=== PATIENT | male | born 2000 | race Caucasian/White ===

== ENCOUNTER 2024-05-28 02:27 | Emergency (ER) | payer SELFPAY ==
[2024-05-28 02:30] VITALS: BP 116/74; PULSE 61; RESP 18; TEMP 36.3; O2SAT 98; BMI 25.9
[2024-05-28 02:48] LABS: MANUAL DIFF FLAG NO
[2024-05-28 02:49] LABS: Basophils Absolute Auto 0.1 X10*3/uL (0.0-0.2); Basophils Percent Auto 0.8 % (0-2); Eosinophils Absolute Auto 0.1 X10*3/uL (0.0-0.4); Hematocrit 45.4 % (42.0-52.0); Hemoglobin 14.9 g/dl (14.0-18.0); Imm Gran Abs Auto 0.03 X10*3/uL (0.00-0.03); Imm Gran Pct Auto 0.4 % (0.0-0.4); Lymphocytes Absolute Auto 1.2 X10*3/uL (1.2-4.9); Lymphocytes Percent Auto 15.8 % (20-40); Mean Corpuscular HGB Conc 32.8 g/dl (31.0-36.0); Mean Corpuscular Hemoglobin 29.8 pg (27.0-33.0); Mean Corpuscular Volume 90.8 fL (80.0-98.0); Mean Platelet Volume 8.8 fL (9.4-12.4); Monocytes Absolute Auto 0.4 X10*3/uL (0.1-1.2); Monocytes Percent Auto 4.8 % (2-11); Neutrophils Absolute Auto 6.1 x10*3/uL (2.0-8.3); Neutrophils Percent Auto 77.2 % (45-73); Platelet Count 255 X10*3/uL (160-400); Red Cell Distribution Width 13.4 % (11.0-16.0); White Blood Count 7.9 X10*3/uL (4.8-10.8)
--- OUTSIDE RECORDS SUMMARY | 2024-05-28 03:19 | XMS_ITS | Clinical Summary ---
Author Organization [facility] Address [address] [place] [address] Phone Care Team Providers Care Brigadier Name Role Phone Carloyn Meyer MD Primary Care Provider [phone] Allergies Active Allergy Reactions Criticality Noted Date Comments Amoxicillin Rash Low Mom reports rash while taking amox as Penicillins 04/19/2003 Medications valACYclovir (Valtrex) 1 g tabletIndications: Herpes labialis 2 tabs twice a day for one day as needed for cold sores. 24 tablet 1 Active amphetamine-dextro amphetamine XR (Adderall XR) 20 MG 24 hr capsuleIndications :Attention deficit hyperactivity disorder (ADHD), predominantly inattentive type Take 1 capsule (20 mg total) by mouth every morning. 30 capsule 3 Active amphetamine-dextro amphetamine XR (Adderall XR) 20 MG 24 hr capsuleIndications :Attention deficit hyperactivity disorder (ADHD), predominantly inattentive type Take 1 capsule (20 mg total) by mouth every morning. 30 capsule 3 Active amphetamine-dextro amphetamine 5 MG tabletIndications: Attention deficit hyperactivity disorder (ADHD), predominantly inattentive type Take 1 tablet (5 mg total) by mouth daily. 30 tablet 3 Active amphetamine-dextro amphetamine 5 MG tabletIndications: Attention deficit hyperactivity disorder (ADHD), predominantly inattentive type Take 1 tablet (5 mg total) by mouth daily. 30 tablet 3 Active amphetamine-dextro amphetamine XR (Adderall XR) 20 MG 24 hr capsuleIndications :Attention deficit hyperactivity disorder (ADHD), predominantly inattentive type Take 1 capsule (20 mg total) by mouth every morning. 30 capsule 3 Active amphetamine-dextro amphetamine 5 MG tabletIndications: Attention deficit hyperactivity disorder (ADHD), predominantly inattentive type Take 1 tablet (5 mg total) by mouth daily. 30 tablet 3 Active Active Problems Problem Noted Date Diagnosed Date Painful erection 10/03/2022 Assessment & Plan (10/03/2022 3:16 PM EDT): 22 year old male with pain with full retraction of foreskin during intercourse and reducible paraphimosis on exam. Referred to urology for evaluation. ?need for circ Sebaceous cyst of penis 12/05/2017 Assessment & Plan (12/05/2017 8:49 PM EDT): Recommend warm soaks and hope will open and drain itself, if becomes red to come for eval and further tx. Attention deficit hyperactiv ity disorder (ADHD), predominantly inattentive type 06/27/2016 Assessment & Plan (10/03/2022 3:09 PM EDT): Hyperfocused on adderral XR 25 mg. Does better with smaller dose. Will decrease to 20 mg. Can use short acting 5 mg PRN. Follow up in 3 months Assessment & Plan (09/27/2021 2:11 PM EDT): Doing ok on present med. Recommend continue on adderall XR 25mg for start of school, if finds grades slipping due to difficulty focusing to call and will send higher dose. Discussed if on higher dose should not come on and off medication as can cause mood issues. Ok to use short acting 10mg dose in later afternoon or evening as needed for studying. Refill given for both medications. Recheck when home for vacation in 3-4 months, call if problems or concerns. Assessment & Plan (01/08/2021 1:25 PM EST): Will decrease long acting adderall xr to 25mg, now that through puberty likely metabolism slower and does not need as much. He can increase adderall short acting to 10mg to take for evening class or studying as needed. Will recheck in a month when back for winter break and see if now correct dosing or needs further adjustment. call if problems or concerns. Assessment & Plan (05/12/2020 2:53 PM EDT): Doing well on adderall XR 30mg in AM and adderall 5-10mg short acting in evening as needed for homework/projects. Will recheck in 4 months prior to going to college, as needed sooner. call if problems or concerns. Assessment & Plan (04/06/2020 8:51 PM EST): Will continue adderall XR 30mg in AM as working well for school day. Will give trial of adderall 5mg to take early evening with dinner and see if helps with homework without causing sleep issues. REcheck in 1 month, as needed sooner. Assessment & Plan (12/16/2019 10:00 PM EST): Doing well on present med, will continue same, call if problems or concerns. Recheck in 3 months, as needed sooner. Discussed can give trial of melatonin 5-10 mg hs for sleep. Assessment & Plan (08/25/2019 10:23 PM EDT): Doing well on present med, will continue same, call if problems or concerns. Recheck in 3 months, as needed sooner. Assessment & Plan (04/18/2019 10:13 AM EST): Doing well on present med, will continue same, call if problems or concerns. Discussed if plans to come off for summer does not need recheck until restart in September, if plans to stay on for summer needs recheck in 3 months. call if problems or concerns. Assessment & Plan (12/16/2018 4:33 PM EST): Doing well on increase adderall XR 30mg, continue same, recheck in 3 months, as needed sooner. Assessment & Plan (11/23/2018 12:46 PM EDT): Discussed on low dose for size, will increase to adderall XR 30mg and hope will capture symptoms better. Discussed once on dose covering for school day can discuss possibly adding short acting after school for homework if needed. Recheck in 2 weeks, as needed sooner, call if problems or concerns. Assessment & Plan (10/28/2018 5:52 PM EDT): Discussed if holding 8AM to 8PM this is about as long as going to get and would not give short acting dose at 8PM as will have trouble falling asleep. Encouraged to do homework during study halls in school and as soon as possible when comes home prior to med wearing off. Discussed if starts wearing off in afternoon then could give short acting dose or if stops holding during school can increase morning dose. Recheck in 3 months, as needed sooner if any above issues arise or other concerns. Assessment & Plan (09/24/2018 1:07 PM EDT): He has tried concerta, adderall and straterra and feels adderall was best. Discussed will start on low dose and then work up as needed until find dose that seems to work and no side effects. Discussed if adderall also causes problems could try vyvanse which he has not had yet. Reviewed side effects and need to take after breakfast. Recheck 2-4 weeks after restarts adderall, as needed sooner. Assessment & Plan (03/19/2018 9:12 AM EST): Doing well on present med, will continue same, call if problems or concerns. Recheck in 3 months, as needed sooner. Assessment & Plan (12/05/2017 8:48 PM EDT): Discussed that straterra does not work for everyone and if not helping focus recommend return to adderall and adjust dose until working well again. As grades good now mom wants to stay on straterra but will call to reevaluate if he feels needs more help with focus or grades slipping. Discussed straterra also can cause depressed mood and if starts worsening would recommend coming off. Recheck in 3 months, as needed sooner. Assessment & Plan (07/30/2017 12:36 PM EDT): Discussed with mother and patient straterra works well for some people but others do not respond. Also discussed can cause depression and worsening mood and to call if occurs. Discussed can not go on and off as does with adderall, if uses straterra must take daily, should see some effect in 2-3 weeks but will not be max effect for 6 weeks. Start at 40mg for 1 week and if does well increase to 80mg. call if problems or concerns. Recheck in 6 weeks, as needed sooner. Assessment & Plan (03/15/2017 12:14 PM EST): Doing well on present med, will continue same, call if problems or concerns. Recheck in 3 months, as needed sooner. Assessment & Plan (11/14/2016 4:08 PM EDT): Doing well on present med, will continue same, call if problems or concerns. Recheck in 4 months, as needed sooner. Assessment & Plan (06/27/2016 10:00 PM EDT): Discussed with mom that as school over in just 2 weeks and coming off med for summer would remain on adderall XR 25mg for now and restart this in fall. If in fall after a month continues to have difficulty concentrating for tests and needing lots of extra time should call and will discuss increasing. Body mass index (BMI) of 85t h to less than 95th percentile for age in pediatric patient 07/27/2008 Assessment & Plan (12/16/2019 10:01 PM EST): Given counseling on proper nutrition and importance of regular exercise. Herpes simplex 05/15/2006 Overview (06/25/2016): When younger has recurrent bouts of eczema herpeticum, has not had for years. Resolved Problems Problem Noted Date Diagnosed Date Resolved Date Right hip pain 07/07/2020 10/03/2022 Assessment & Plan (01/08/2021 1:26 PM EST): Exam remains normal with FROM, x-ray previously normal. Referral to PT given, discussed likely will need to do when home on break because insurance unlikely to cover out of state but he can call and find out. Assessment & Plan (07/07/2020 1:42 PM EDT): By history sounds like had avulsion fracture of hip in 9th grade and never had PT after to have ROM return fully. Left hip pain likely from over use and expect will get better with rest. Will schedule hip x-ray at [facility] and if normal will send to PT. Dysthymia 12/05/2017 01/08/2021 Assessment & Plan (12/05/2017 8:46 PM EDT): Discussed with mom and patient counseling for feelings of depression and recommended having evaluation with our counselors to see if would benefit from counseling to help mood. Mom and patient interested, will send referral to behavioral health. Dysphoric mood 12/04/2016 01/08/2021 Assessment & Plan (12/16/2019 4:51 PM EST): He reports is just stress of school and nothing he is concerned about. He reports not interfering with activities and grades are good. Discussed that if worsens or interfering with activities to call for counseling. Assessment & Plan (12/05/2016 1:13 PM EDT): Pt denies feeling depressed but spending more time alone. Discussed with mother that this is age appropriate behavior. Discussed with pt signs of depression He agrees to seek med attn if worsening mood. Advised pt to discuss with PCP at next med check. Attention deficit disorder 02/20/2015 0 06/27/2016 Overview (06/25/2016): On adderall XR 25mg in AM Assessment & Plan (06/27/2016 9:57 PM EDT): Encounters Date Type Department Care Team Description 05/28/2024 2:27 AM EDT - Present Hospital Encounter [facility] - Patient Ping from Last 3 Months Immunizations Immunization Administration Dates Next Due DTaP 06/19/2006, 4,2002,10/09,2002 H1N1 01/25/2009,12/29/2008 HPV Vaccine 9 Valent 11/01/2015,10/29/2014 Hep A 10/21/2012,10/17/2011 Hep B 03/02/2003,2002,2002 Hib, unspecified formulation 09/15/2003, 2002,2002,07/21 IPV 06/19/2006, 4,2002,07/21 Influenza 11/01/2015,10/29/2014,01/30/2006 Influenza, injectable, quadr ivalent, preservative free 12/18/2021,12/01/2020,12/16/2019,12/16,12/05/2017,12/04/2016 Influenza, intranasal, trivalent 014,10/21/2012,10/17/2011,11/30 MMR 06/19/2006,06/03/2003 Meningococcal B Bexsero 01/15/2019,12/16/2018 Meningococcal Conj (Menactra) MCV4P 12/16/2018,0 10/27/2013 Pneumococcal Conjugate 09/15/2003,2002,2002,07/21 Tdap 10/27/2013 Varicella 06/19/2006,06/03/2003 Family History Medical History Relation Name Comments ADD / ADHD Brother No Known Problems Father Hepatitis Mother C ADD / ADHD Sister Relation Name Status Comments Brother Father Mother Other 1 Brother with AD HD and meds when younger. Mother Hep C + (he was checked at 9 months and neg) Other 2 Brother with AD HD and meds when younger. sister on adderall as adult Mother Hep C + (he was checked at 9 months and neg) Sister Social History Tobacco Use Types Packs/Day Years Used Date Smoking Tobacco: Never Assessed Comments:vaped short time in summer Alcohol Use Standard Drinks/Week Comments Yes 2 (1 standard drink = 0.6 oz pur e alcohol) Hunger/Food Answer Date Recorded In the last 12 months, did y ou or your family ever eat less than you felt you should because there wasn't enough money for food? No 01/04/2021 Stable Housing Answer Date Recorded Are you worried that in the next 2 months you may not have stable housing? No 01/04/2021 Transportation Concerns Answer Date Rec orded In the last 12 months, have you or your family ever had to go without healthcare because you didn't have a way to get there? No 01/04/2021 Hazards in Home Answer Date Recorded Think about the place you li ve. Do you have problems with any of the following? Pests (mice or roaches), mold, no/not working smoke detectors, water leaks, no window guards. No 2020 Financing Utilities Answer Date Recorde d In the last 12 months, has t he electric, gas, oil, or water company threatened to shut off your services in your home? No 01/04/2021 Safety at Home Answer Date Recorded Are you or your family worried about feeling saf e in your home? No 01/04/2021 Outside Support Answer Date Recorded Do you feel that you need mo re support from other people or programs to help you care for yourself or your family? No 01/04/2021 Understanding Health Concerns Answer Da te Recorded Do you need help understandi ng your or your child's healthcare needs (diagnosis, medications, plan, etc.)? No 01/04/2021 Financing Health Concerns Answer Date R ecorded In the last 12 months, was t here a time when your child needed to see a doctor or get medications or supplies but could not because of cost? No 01/04/2021 Missing School or Work Answer Date Ciro rded Did you or your child miss s chool or work because of a health problem that could have been avoided? No 01/04/2021 Sex and Gender Information Value Date Recorded Sex Assigned at Male 01/04/2021 2:09 PM EST Legal Sex Male 5:30 AM EST Gender Identity Male 01/04/2021 2:09 PM EST Sexual Orientation Straight 12/16/2018 4: 30 PM EST Last Filed Vital Signs Vital Sign Reading Time Taken Comments Blood Pressure 116/70 10/03/2022 1:25 PM EDT Pulse 65 10/07/2012 9:49 AM EDT Temperature - - Respiratory Rate - - Oxygen Saturation - - Inhaled Oxygen Concentration - - Weight 88.1 kg (194 lb 4 oz) 10/03/2022 1:25 PM EDT Height 184.5 cm (6' 0.64 ) 10/03/2022 1:25 PM ED T Body Mass Index 25.88 10/03/2022 1:25 PM EDT Plan of Treatment Health Maintenance Due Date Last Done Comments Influenza Vaccines (#1) 2023 12/19/19, 12/01/2020, 12/16/2019, Additional history exists COVID-19 Vaccine (4 - 2023-2 5 season) 2023 04/29/2021, 08/15/2020, 07/19/2020 DTaP,Tdap,and Td Vaccines (8 - Td or Tdap) 12/13/2033 12/14/2023, 10/27/2013, 06/19/2006, Additional history exists Hepatitis B Vaccines Completed 03/02/2003, 2002, 2002 HIB Vaccines Completed 09/15/2003, 11/12, 2002, Additional history exists Pneumococcal Vaccine Completed 09/15/2003, 2002, 2002, Additional history exists IPV Vaccines Completed 06/19/2006, 03/2003, 2002, Additional history exists MMR Vaccines Completed 06/19/2006, 06/03/2003 Varicella Vaccines Completed 06/19/2006, 06/03/2003 Hepatitis A Vaccines Completed 10/21/2012, 10/17/19 12 HPV Vaccines Completed 11/01/2015, 10/29/2014 Meningococcal Vaccine Completed 12/16/2018, 014 Men B Vaccine Completed 01/15/2019, 12/16/2018 HIV Screening Completed 01/04/2021 Hepatitis C Screening Completed 01/04/2021 Procedures * The patient is currently admitted. The information in this section might not be complete until the patient is discharged.Due to [place] Mix & Meet law, this organization might not be sharing sensitive test results. Procedure Name Priority Date/Time Associated Diagnosis Comments HEPATITIS C ANTIBODY WITH REFLEX TO HCV, RNA, QUANT, RT PCR Routine 01/04/2021 2:32 PM EST Encounter for screening examination for sexually transmitted disease from Last 3 Months or Most Recently Relevant to Health Maintenance Results * Due to [place] Mix & Meet law, this organization might not be sharing sensitive test results. * Hepatitis C antibody (01/04/2021 2:32 PM EST) Hepatitis C Virus Antibody NON-REACT CHRISTI NON-REACT CHRISTI [facility] Signal/Cutoff 0.02 <1.00 [facility] Comment: HCV antibody was non-reactive. There is no laboratory evidence of HCV infection. In most cases, no further action is required. However, if recent HCV exposure is suspected, a test for HCV RNA (test code 18734) is suggested. For additional information please refer to http://education.[employer]/faq/MVR12w6 (This link is being provided for informational/ educational purposes only.) Blood (Blood, Venous) 01/04/2021 2:32 PM EST 01/05/2021 11:30 PM EST Narrative Resulting Agency Comment Performing Organization Information: ?Site ID: [id number] ?Name: [facility] ?Address: [address] [place] [address], [facility] [place] [address] ?Director: Trace Blake us Carolyn Meyer MD LAB BLOOD ORDERABLES Final Resul t [id number] from Last 3 Months or Most Recently Relevant to Health Maintenance [place] [address] [address] Care Teams Brigadier Relationship Specialty Start Date End Date Carolyn Meyer MD [address] [place] [address] PCP - General Pediatrics 09/27/21
--- OUTSIDE RECORDS SUMMARY | 2024-05-28 03:19 | XMS_ITS | Encounter Summary ---
Author Organization [facility] Address [address] [place] [phone] Phone Care Team Providers Care National Park Ranger Name Role Phone Carolyn Meyer MD Primary Care Provider Reason for Visit * Reason Comments Med Refill Encounter Details Date Type Department Care Team ([facility] Contact Info) Description 10/03/2020 Refill [facility] [address] [place] [address], [facility] [address] [place] [address] Carolyn Meyer MD [address] [place] [address] [address] [place] [address] Attention deficit hyperactivity disorder (ADHD), predominantly inattentive type Social History Tobacco Use Types Packs/Day Years Used Date Smoking Tobacco: Never Smokeless Tobacco: Never Alcohol Use Standard Drinks/Week Comments No 0 (1 standard drink = 0.6 oz pur e alcohol) Hunger/Food Answer Date Recorded In the last 12 months, did y ou or your family ever eat less than you felt you should because there wasn't enough money for food? No 12/16/2019 Stable Housing Answer Date Recorded Are you worried that in the next 2 months you may not have stable housing? No 12/16/2019 Transportation Concerns Answer Date Rec orded In the last 12 months, have you or your family ever had to go without healthcare because you didn't have a way to get there? No 12/16/2019 Hazards in Home Answer Date Recorded Think about the place you li ve. Do you have problems with any of the following? Pests (mice or roaches), mold, no/not working smoke detectors, water leaks, no window guards. No 2019 Financing Utilities Answer Date Recorde d In the last 12 months, has t he electric, gas, oil, or water company threatened to shut off your services in your home? No 12/16/2019 Safety at Home Answer Date Recorded Are you or your family worried about feeling saf e in your home? No 12/16/2019 Outside Support Answer Date Recorded Do you feel that you need mo re support from other people or programs to help you care for yourself or your family? No 12/16/2019 Understanding Health Concerns Answer Da te Recorded Do you need help understandi ng your or your child's healthcare needs (diagnosis, medications, plan, etc.)? No 12/16/2019 Financing Health Concerns Answer Date R ecorded In the last 12 months, was t here a time when your child needed to see a doctor or get medications or supplies but could not because of cost? No 12/16/2019 Missing School or Work Answer Date Ciro rded Did you or your child miss s chool or work because of a health problem that could have been avoided? No 12/16/2019 Sex and Gender Information Value Date Recorded Sex Assigned at Male 01/04/2021 2:09 PM EST Legal Sex Male 5:30 AM EST Gender Identity Male 01/04/2021 2:09 PM EST Sexual Orientation Straight 12/16/2018 4: 30 PM EST documented as of this encounter Miscellaneous Notes * Telephone Encounter - Monica Coley NP - 10/04/2020 12:02 PM EDT Looks like already sent by [facility]. * Telephone Encounter - Zoya Wesley - 10/04/2020 11:20 AM EDT MEDICATION NAME: amphetamine-dextroamphetamine XR 30 mg MEDICATION NAME: amphetamine-dextroamphetamine 5 mg LAST MED F/U DATE: 05/12/20 LAST CP DATE: 12/16/19 VERIFIED MEDICATION AND DOSE: Yes Do you have enough pills until your PCP can sign on: request came through pharmacy Next appointment scheduled: 01/04/21 Pt just moved to college in [place] 09/26 documented in this encounter Plan of Treatment Not on file documented as of this encounter Visit Diagnoses Diagnosis Attention deficit hyperactivity disorder (ADHD), predominantly inattentive type documented in this encounter Care Teams National Park Ranger Relationship Specialty Start Date End Date Carolyn Meyer MD [address] [place] [address] PCP - General Pediatrics 09/27/21 documented as of this encounter
--- OUTSIDE RECORDS SUMMARY | 2024-05-28 03:19 | XMS_ITS | Encounter Summary ---
Author Organization [facility] Address [address] [place] [address] Phone Care Team Providers Care [employer] Driver Name Role Phone Carolyn Meyer MD Primary Care Provider [phone] Reason for Visit * Reason Comments Med Refill Encounter Details Date Type Department Care Team ([facility] [address] Contact Info) Description 10/09/2020 Refill [facility] [address] [place] [address], [facility] [address] [place] [address] Carolyn Meyer MD [address] [place] [address] [address] [place] [address] Attention deficit hyperactivity disorder (ADHD), [...] encounter Miscellaneous Notes * Telephone Encounter - Carolyn Meyer MD - 04/17/2021 8:26 PM EST Already filled * Telephone Encounter - Zoya Wesley - 10/10/2020 10:22 AM EDT Duplicate request script sent to pharmacy 09/30 documented in this encounter Plan of Treatment Not on file documented as of this encounter Visit Diagnoses Diagnosis Attention deficit hyperactivity disorder (ADHD), predominantly inattentive type documented in this encounter Care Teams [employer] Driver Relationship Specialty Start Date End Date Carolyn Meyer MD [address] [place] [address] PCP - General Pediatrics 8/17/22 documented as of this encounter
--- OUTSIDE RECORDS SUMMARY | 2024-05-28 03:19 | XMS_ITS | Data Portability ---
[facility] Organization [facility] Address [address] [place] [address] Assessment No assessment recorded. Plan of Treatment Reminders Order Date Submit Date Provider Last Modified By Organization Details Last Modified Time Details Appointments None recorded. Lab drug of abuse panel, urine 024 [place] In-Office Order, Internal Use Only DO Not Attach Compendium DO Not Attach Compendium, Do Not Delete/merge, [address] 4 05:02:12 Referral None recorded. Procedures None recorded. Surgeries None recorded. Imaging None recorded. Medication Orders dextroamp hetamine- amphetami ne ER 20 mg 24hr capsule,e xtend release 024 [facility][id number], [address] [place], [address], 4 16:44:20 dextroamp hetamine- amphetami ne 5 mg tablet 024 [facility] #[id number], [address] [place], [address], 4 16:45:14 Patient TargetsNo targets recorded. Patient InstructionsNo instructions recorded. Reason for Referral None Reported. Results Created Date Observation Date Name Description Value Unit Range Abnormal Flag Note LastModifiedBy Organization Detail LastModifiedTime Result Notes None recorded. Medical Equipment None Reported. Allergies Allergen ID Allergen Name Allergen Category Reaction Reaction Severity Criticality Documentation Date Start Date Code Code System Note Provider Name and Address Organization Details Recorded Time 64453 Product containin g penicilli n (product) medicatio n Not available Not available Not available 02/14/2023 872946 1859 [facility] 4 12:20:54 69323 amoxicill in medicatio n Not available Not available Not available 02/14/2023 723 RxNorm [facility] 4 12:21:02 Medications Name Sig Start Date Stop Date Status Note LastModified by Organization Details LastModified Time azithromyci n 250 mg tablet TAKE 2 TABLETS BY MOUTH TODAY, THEN TAKE 1 TABLET DAILY FOR 4 DAYS DIRECTED 02/14 completed Not Available Not Available Not Available dextroamphe tamine-amph etamine ER 20 mg 24hr capsule,ext end release Take 1 capsule every day by oral route in the morning for 30 days. 2023 active Not Available Not Available Not Avai lable benzonatate 100 mg capsule TAKE 1 CAPSULE BY MOUTH THREE TIMES A DAY NEEDED FOR COUGH 02/14 completed Not Available Not Available Not Available albuterol sulfate HFA 90 mcg/actuati on aerosol inhaler INHALE 2 PUFFS INTO THE LUNGS EVERY 6 HOURS NEEDED FOR WHEEZING OR SHORTNESS OF BREATH/DY SPNEA active Not Available Not Available No t Available dextroamphe tamine-amph etamine 5 mg tablet TAKE 1 TABLET BY MOUTH EVERY DAY NEEDED active Not Available Not Available No t Available Vitals Date Recorded Body weight Body mass index (BMI) Body mass index (BMI) Percentile per age and sex Body height Heart rate Systolic blood pressure Diastolic blood pressure Provider Name and Address Organization Details Last Updated DateTime 4 50654.7 g 25 kg/m2 68 % 189.23 cm 51 /min 120 mm[Hg] 72 mm[Hg] aPtricia Benito [facility] 4 12:23:09 Date Recorded Body height Body mass index (BMI) Body weight Heart rate Oxygen saturation Oxygen saturation in Arterial blood by Pulse oximetry Systolic blood pressure Diastolic blood pressure Provider Name and Address Organization Details Last Updated DateTime 4 189.23 cm 25 kg/m2 88726.7 g 72 /min 98 % 98 % 130 mm[Hg] 86 mm[Hg] Mindy Eid [facility] 4 16:39:07 Social History None recorded. Functional Status None recorded. Mental Status None recorded. Family History Nothing Reported Notes:father- healthy mother - healthy brother- healthy sister- healthy denies familiy history of early heart disease or cancer. Medical History No medical history recorded. Past Encounters Encounter ID Performer Location Encounter Start Date Encounter Closed Date Diagnosis/Indication Diagnosis SNOMED-CT Code Diagnosis ICD10 Code Diagnosis Note [id number] Paulie Moncada MD [address] [address] 02/14/2023 12:14:22 02/14/2023 14:56:16 Attention deficit hyperactivity disorder 962375393 F90.9 discussed with pt, meds working well. Aware that he will need appts q 3 months and drug screens, refill and code of conduct given. [id number] Eagle Condon MD [address] [address] 10/02/2023 16:31:40 10/02/2023 17:09:59 Attention deficit hyperactivity disorder 303784414 F90.9 SENIOR FUNCTIONAL ANALYST pulled, WNL. Refills of adderall sent. Will f/u for med check in 3 months, sooner as needed if side effects develop (see list in HPI, this was reviewed w/patient) . Discussed taking exactly as prescribed , no alcohol on it. Verbalized understand ing. In agreement w/plan. Health Concerns Section Related Observation LastModified by Organization Detai ls LastModified Time None Recorded Concern Status LastModified by Organization Details LastModified Time None Recorded Advance Directives Directive None Recorded Payers Encounter Date Sequence Insurance Name Policy Number Policy Reid Covered Member ID Reid Member ID Guarantor Name 02/14/2023 1 [facility] [employer] [facility] - 1jiajie ([facility]) [id number] Afmary [employer] [id number] 2 Xavier Huitronroxy 10/02/2023 [facility] [employer] [facility] - 1jiajie ([facility]) [id number] Afnatashata Tarpon [employer] [id number] 2 Xavier Geraldine Notes Date Note Type Note Provider Name and Address Organization Details Recorded Time 02/14/2023 text/html ADHDReported bypatient.School Performance:no issue; child is learning Attention:able to focus Hyperactivity:is not hyperactive Impulsivity:is not impulsive Tasking:able to initiate tasks; able to complete tasks; able to move on to the next task; multi-taskingNotes :new pt, here to establish care and med check. REports that he was tested in 3-4 grade for ADHD but did not start meds until 5th grade.Meds currently working well, would like to continue with this dose. 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 Paulie Moncada MD [address] [facility],ATTN: GIOVANNA MCBRIDE [[email or web address]], [place], [address], [facility] [employer] 02/14/2023 21:45:53 10/02/2023 text/html 23 year old male presents looking for refill of adderall he takes for documented hx of ADHD. Has not filled it this summer but will be going back to [employer] and studying finance in the fall, needs it for focus in school. Take the 20mg ER daily and 5mg IR PRN. Reports this is a theraputic dose for him. Denies side effects such as irritability, anxiety, CP, palpitations, weight loss, insomnia. Eagle Condon MD [address] [facility],ATTN: GIOVANNA MCBRIDE [[email or web address]], [place], [address], [employer] 10/02/2023 23:36:21
--- OUTSIDE RECORDS SUMMARY | 2024-05-28 03:19 | XMS_ITS | Encounter Summary ---
Author Organization [facility] Address [address] [place] [id number] Phone Care Team Providers Care Natural Resource Technician Name Role Phone Carolyn Meyer MD Primary Care Provider [phone] Reason for Visit * Reason Comments ED Admission Encounter Details Date Type Department Care Team ([facility] Contact Info) Description 05/28/2024 2:27 AM EDT - Present Hospital Encounter [facility] - Patient Ping Social History Tobacco Use Types Packs/Day Years Used Date Smoking Tobacco: Never Assessed Comments:vaped short time in summer of 2020 Alcohol Use Standard Drinks/Week Comments Yes 2 [...] PM EST documented as of this encounter Plan of Treatment Not on file documented as of this encounter Visit Diagnoses Not on filedocumented in this encounter Care Teams Natural Resource Technician Relationship Specialty Start Date End Date Carolyn Meyer MD [address] [place] [address] PCP - General Pediatrics 09/27/21 documented as of this encounter
[2024-05-28 03:22] LABS: Alanine Aminotransferase 23 U/L (0-40); Albumin Level 4.7 g/dL (3.5-5.0); Alkaline Phosphatase 71 U/L (39-117); Anion Gap 14 (12-20); Aspartate Amino Transferase 22 U/L (5-37); Bilirubin Total 0.5 mg/dL (0.0-1.0); Blood Urea Nitrogen 10 mg/dL (9-16); Carbon Dioxide 25 mmol/L (22-29); Chloride 107 mmol/L (96-108); Creatinine Clr Calc Pharmacy 144.5; Estimated Glomerular Filt Rate > 60; Ethanol 74 mg/dL; Glucose Random 94 mg/dL (60-115); Potassium 4.5 mmol/L (3.3-5.1); Sodium 141 mmol/L (135-145); Total Protein 7.3 g/dL (6.5-8.0)
[2024-05-28 04:00] VITALS: BP 107/44; PULSE 60; RESP 18; TEMP 36.7; O2SAT 97
== END 2024-05-28 05:43 | disposition home or self-care (01) ==
PROVIDERS: Emergency Provider Emergency Medicine
DX: F10.920 Alcohol use, unspecified with intoxication, uncomplicated (principal); Y90.3 Blood alcohol level of 60-79 mg/100 ml; R11.2 Nausea with vomiting, unspecified; K29.70 Gastritis, unspecified, without bleeding; R51.9 Headache, unspecified
CPT/HCPCS: 36415; 80053; 80307; 85025; 99283; 99284